=== PATIENT | female | born 1965 | race Caucasian/White ===

== ENCOUNTER 2018-10-12 07:43 | Outpatient (CLI) | payer OTHER ==
[2018-10-12 08:04] LABS: MEAN CORPUSCULAR HEMOGLOBIN 30.8 pg (27.0-34.8); MEAN CORPUSCULAR HGB CONC 32.5 g/dL (32.4-35.8); MEAN CORPUSCULAR VOLUME 94.8 fL (80-100); MEAN PLATELET VOLUME 7.7 fL (7.4-10.4); PLATELET COUNT 270 x10^3/uL (130-400); RED BLOOD COUNT 4.54 x10^6/uL (3.82-5.3); RED CELL DISTRIBUTION WIDTH 13.8 % (9.6-15.2)
[2018-10-12 08:16] LABS: ALANINE AMINOTRANSFERASE 22 U/L (12-78); ALBUMIN 3.6 g/dL (3.4-5.0); ANION GAP 5 mmol/L (5-15); CALCIUM 8.9 mg/dL (8.5-10.1); CHLORIDE 108 mmol/L (98-107); CHOLESTEROL, TOTAL 209 mg/dL (140-239); CREATININE 0.97 mg/dL (0.55-1.02)
[2018-10-12 08:21] LABS: BASOPHILS # (AUTO) 0.01 x10^3/uL (0-0.1); BASOPHILS % (AUTO) 0 % (0-1); EOSINOPHILS # (AUTO) 0.09 x10^3/uL (0-0.4); EOSINOPHILS % (AUTO) 2 % (1-7); LYMPHOCYTES % (AUTO) 58 % (22-44); MD SCAN; MONOCYTES # (AUTO) 0.33 x10^3/uL (0.2-0.8); MONOCYTES % (AUTO) 8 % (2-9); NEUTROPHILS # (AUTO) 1.26 x10^3/uL (1.8-6.8); NEUTROPHILS % (AUTO) 32 % (42-75)
[2018-10-12 08:26] LABS: ALKALINE PHOSPHATASE 84 U/L (45-117); BILIRUBIN,TOTAL 0.3 mg/dL (0.2-1.0); CHOL/HDL RATIO 3.1; HDL CHOL % 32 % (28-40); HDL CHOLESTEROL (DIRECT) 67 mg/dL (40-60); LDL CHOLESTEROL,CALCULATED 130 mg/dL (54-169); LDL/HDL RATIO 1.9 (0.5-3.0); TOTAL PROTEIN 6.9 g/dL (6.4-8.2); TRIGLYCERIDES 59 mg/dL (50-200); VLDL CHOLESTEROL 12 mg/dL (0-25)
[2018-10-12 08:36] LABS: HEMOGLOBIN A1C 7.9 % (4.2-6.3)
== END 2018-10-12 23:59 | disposition home or self-care (01) ==
LOC: LAB 07:43
PROVIDERS: ATTEND Nurse Practitioner
DX: Z00.00 Encounter for general adult medical examination without abnormal findings (principal); E10.9 Type 1 diabetes mellitus without complications
CPT/HCPCS: 36415; 80053; 80061; 82043; 82570; 83036; 84443; 85025

== ENCOUNTER → 2018-10-30 | Outpatient (CLI) | payer OTHER | END | disposition home or self-care (01) | LOC: CFH 08:29 | PROVIDERS: ATTEND Nurse Practitioner | DX: Z12.31 Encounter for screening mammogram for malignant neoplasm of breast (principal) | CPT/HCPCS: 77067 ==

== ENCOUNTER → 2019-12-24 | Outpatient (CLI) | payer OTHER ==
[2019-12-24 08:00] LABS: BASOPHILS # (AUTO) 0.02 x10^3/uL (0-0.1); BASOPHILS % (AUTO) 1 % (0-1); EOSINOPHILS # (AUTO) 0.09 x10^3/uL (0-0.4); EOSINOPHILS % (AUTO) 2 % (1-7); LYMPHOCYTES # (AUTO) 2.08 x10^3/uL (1-3.4); LYMPHOCYTES % (AUTO) 52 % (22-44); MD NO; MEAN CORPUSCULAR HEMOGLOBIN 30.5 pg (27.0-34.8); MEAN CORPUSCULAR HGB CONC 32.5 g/dL (32.4-35.8); MEAN PLATELET VOLUME 8.1 fL (7.4-10.4); MONOCYTES # (AUTO) 0.26 x10^3/uL (0.2-0.8); MONOCYTES % (AUTO) 6 % (2-9); NEUTROPHILS # (AUTO) 1.58 x10^3/uL (1.8-6.8); NEUTROPHILS % (AUTO) 39 % (42-75); PLATELET COUNT 245 x10^3/uL (130-400); RED BLOOD COUNT 4.64 x10^6/uL (3.82-5.3); RED CELL DISTRIBUTION WIDTH 13.3 % (9.6-15.2)
[2019-12-24 08:12] LABS: ALANINE AMINOTRANSFERASE 25 U/L (12-78); ALBUMIN 3.8 g/dL (3.4-5.0); ANION GAP 6 mmol/L (5-15); CALCIUM 9.4 mg/dL (8.5-10.1); CHLORIDE 108 mmol/L (98-107); CREATININE 0.98 mg/dL (0.55-1.02)
[2019-12-24 08:21] LABS: ALKALINE PHOSPHATASE 86 U/L (45-117); BILIRUBIN,TOTAL 0.6 mg/dL (0.2-1.0); CHOL/HDL RATIO 2.6; CHOLESTEROL, TOTAL 154 mg/dL (140-239); FREE T4 (FREE THYROXINE) 1.28 ng/dL (0.76-1.46); HDL CHOL % 39 % (28-40); HDL CHOLESTEROL (DIRECT) 60 mg/dL (40-60); LDL CHOLESTEROL,CALCULATED 79 mg/dL (54-169); LDL/HDL RATIO 1.3 (0.5-3.0); TOTAL PROTEIN 6.8 g/dL (6.4-8.2); TRIGLYCERIDES 73 mg/dL (50-200); VLDL CHOLESTEROL 15 mg/dL (0-25)
== END | disposition home or self-care (01) ==
LOC: LAB 07:44
PROVIDERS: ATTEND Internal Medicine Endocrinology, Diabetes & Metabolism
DX: E10.65 Type 1 diabetes mellitus with hyperglycemia (principal)
CPT/HCPCS: 36415; 80053; 80061; 82043; 82570; 84439; 84443; 85025; 86376

== ENCOUNTER → 2020-02-19 | Outpatient (CLI) | payer OTHER | END | disposition home or self-care (01) | LOC: CFH 09:43 | PROVIDERS: ATTEND Nurse Practitioner | DX: Z12.31 Encounter for screening mammogram for malignant neoplasm of breast (principal) | CPT/HCPCS: 77063; 77067 ==

== ENCOUNTER 2020-03-06 05:36 | Day surgery (SDC) | payer OTHER ==
[~2020-03-06] VITALS: Ht 175.3 cm; Wt 84.0 kg
[2020-03-06] MEDS ORDERED: CHLORHEXIDINE 15 ML UDC ONE (06:11)
[2020-03-06 06:18] VITALS: BP 112/74
[2020-03-06] MEDS ORDERED: CHOL10003 PO (06:28)
[2020-03-06] MEDS ORDERED: tumeric PO (06:28)
[2020-03-06] MEDS ORDERED: insulin pump (06:28)
[2020-03-06] MEDS ORDERED: ATOR10TA9 PO (06:28)
[2020-03-06] MEDS ORDERED: LIDOCAINE-MPF 1%, 2ML INFIL ONE (06:30)
[2020-03-06] MEDS ORDERED: CHLORHEXIDINE 15 ML UDC MM ONE (06:30)
[2020-03-06] MEDS ORDERED: LACTATED RINGERS 1,000 ML IV SCH (06:30)
[2020-03-06] MEDS ORDERED: BUPIVACAINE/PF 0.5% ONE (06:31)
[2020-03-06] MEDS ORDERED: LIDOCAINE/PF 1%, 30ML ONE (06:31)
[2020-03-06] MEDS ORDERED: MIDAZOLAM 1 MG/ML, 2ML ONE (06:55)
[2020-03-06 07:01] LABS: ALANINE AMINOTRANSFERASE 21 U/L (12-78); ALBUMIN 3.5 g/dL (3.4-5.0); ANION GAP 2 mmol/L (5-15); CALCIUM 8.9 mg/dL (8.5-10.1); CHLORIDE 103 mmol/L (98-107); CREATININE 1.01 mg/dL (0.55-1.02)
[2020-03-06 07:03] LABS: ALKALINE PHOSPHATASE 86 U/L (45-117); BILIRUBIN,TOTAL 0.4 mg/dL (0.2-1.0); TOTAL PROTEIN 6.6 g/dL (6.4-8.2)
[2020-03-06] MEDS ORDERED: PROPOFOL 10 MG/ML, 20ML ONE (07:11)
[2020-03-06] MEDS ORDERED: LIDOCAINE 1%, 20ML INFIL ONE (07:17)
[2020-03-06] MEDS ORDERED: BUPIVACAINE/PF 0.5% INJ ONE (07:17)
[2020-03-06] MEDS ORDERED: KETOROLAC 30 MG/1 ML IV PRN (07:30)
[2020-03-06] MEDS ORDERED: FENTANYL PF 100 MCG/2ML IV PRN (07:30)
[2020-03-06] MEDS ORDERED: hydrALAzine 20 MG/ML, 1ML IV PRN (07:30)
[2020-03-06] MEDS ORDERED: DIAZEPAM 5 MG/ML, 2ML IVPush PRN (07:30)
[2020-03-06] MEDS ORDERED: MEPERIDINE/PF 25MG/0.5ML IVPush PRN (07:30)
[2020-03-06] MEDS ORDERED: LABETALOL 5MG/ML, 20ML IV PRN (07:30)
[2020-03-06] MEDS ORDERED: ACETAMINOPHEN 325 MG TABLET PO PRN (07:30)
[2020-03-06] MEDS ORDERED: PROMETHAZINE 25 MG/ML, 1ML IV PRN (07:30)
[2020-03-06] MEDS ORDERED: HYDROmorphone 2 MG/ML, 1ML IVPush PRN (07:30)
[2020-03-06] MEDS ORDERED: ALBUTEROL SULFATE 2.5 MG/3 ML NPPB PRN (07:30)
[2020-03-06] MEDS ORDERED: OXYcodone 5 MG/5 ML ORAL.SOL UDC PO PRN (07:30)
== END 2020-03-06 08:30 | disposition home or self-care (01) ==
LOC: OUT 05:36
PROVIDERS: ATTEND Orthopaedic Surgery
DX: M65.331 Trigger finger, right middle finger (principal); Z20.828 Contact with and (suspected) exposure to other viral communicable diseases; E10.9 Type 1 diabetes mellitus without complications; Z79.4 Long term (current) use of insulin; Z79.899 Other long term (current) drug therapy; Z87.891 Personal history of nicotine dependence
CPT/HCPCS: 26055; 36415; 80053; 82962; 87635; J2250; J2704; J7120

== ENCOUNTER → 2021-01-28 | Outpatient (CLI) | payer OTHER ==
[~2021-01-28] MED LIST: ATOR10TA9 PO; CHOL10003 PO; insulin pump; tumeric PO
[2021-01-28 07:57] LABS: ALBUMIN 3.6 g/dL (3.4-5.0); ANION GAP 6 mmol/L (5-15); CALCIUM 9.1 mg/dL (8.5-10.1); CHLORIDE 101 mmol/L (98-107)
[2021-01-28 08:06] LABS: ALANINE AMINOTRANSFERASE 23 U/L (12-78); ALKALINE PHOSPHATASE 100 U/L (45-117); BILIRUBIN,TOTAL 0.4 mg/dL (0.2-1.0); CHOL/HDL RATIO 2.5; CHOLESTEROL, TOTAL 186 mg/dL (140-239); CREATININE 0.99 mg/dL (0.55-1.02); FREE T4 (FREE THYROXINE) 1.05 ng/dL (0.76-1.46); HDL CHOL % 39 % (28-40); HDL CHOLESTEROL (DIRECT) 73 mg/dL (40-60); LDL CHOLESTEROL,CALCULATED 96 mg/dL (54-169); LDL/HDL RATIO 1.3 (0.5-3.0); TOTAL PROTEIN 7.2 g/dL (6.4-8.2); TRIGLYCERIDES 87 mg/dL (50-200); VLDL CHOLESTEROL 17 mg/dL (0-25)
== END | disposition home or self-care (01) ==
LOC: LAB 07:27
PROVIDERS: ATTEND Internal Medicine Endocrinology, Diabetes & Metabolism
DX: E10.65 Type 1 diabetes mellitus with hyperglycemia (principal)
CPT/HCPCS: 36415; 80053; 80061; 82043; 82570; 84439; 84443